=== PATIENT | female | born 1935 | race Caucasian/White ===

== ENCOUNTER 2019-06-01 13:36 | Outpatient (CLI) | payer MEDICARE ==
[2019-06-01] MEDS ORDERED: OMNIPAQUE 350 MG/ML, 100ML BOTTLE ONE (16:09)
== END 2019-06-01 23:59 | disposition home or self-care (01) ==
LOC: CFH 13:36
PROVIDERS: ATTEND Family Medicine
DX: K57.30 Diverticulosis of large intestine without perforation or abscess without bleeding (principal); J98.11 Atelectasis; J98.4 Other disorders of lung; Z90.49 Acquired absence of other specified parts of digestive tract
CPT/HCPCS: 74177; 82565; Q9967

== ENCOUNTER 2019-06-21 13:21 | Outpatient (CLI) | payer MEDICARE | END 2019-06-21 23:59 | disposition home or self-care (01) | LOC: CVU 13:21 | PROVIDERS: ATTEND Physician Assistant Medical | DX: I08.3 Combined rheumatic disorders of mitral, aortic and tricuspid valves (principal); R60.0 Localized edema | CPT/HCPCS: 93306; 93970 ==